=== PATIENT | female | born 1995 | race Caucasian/White ===

== ENCOUNTER 2018-04-24 18:47 | Emergency (ER) | payer OTHER ==
[2018-04-24 19:27] VITALS: BP 132/69
--- NOTE | 2018-04-24 19:50 | UC ---
Skin Complaint HPI - HPI Summary HPI Summary: Patient developed red raised spots on her hands, face and feet after visiting her parents at a hotel the spots do itch - History of Current Complaint Chief Complaint: [employer] Time Seen by Provider: 04/24/18 19:28 Stated Complaint: SKIN COMPLAINT Hx Obtained From: Patient Hx Last Menstrual Period: 04/12/18 Onset/Duration: Sudden Onset, Lasting Days Skin Exposure Onset/Duration: Days Ago Timing: Constant Onset Severity: Mild Current Severity: Mild Pain Intensity: 0 Location: Discrete Character: Redness, Raised, Painful Alleviating Factor(s): Nothing Associated Signs & Symptoms: Positive: Negative Related History: Possible Reaction to: Insect - Allergy/Home Medications Allergies/Adverse Reactions: Allergies Allergy/AdvReac Type Severity Reaction Status Date / Time Penicillins Allergy Hives Verified 04/24/18 19:28 Home Medications: Home Medications Oral Contraceptives DAILY 04/24/18 [History] Review of Systems Constitutional: Negative Skin: Rash Eyes: Negative ENT: Negative Respiratory: Negative Cardiovascular: Negative Gastrointestinal: Negative Genitourinary: Negative Motor: Negative Neurovascular: Negative Musculoskeletal: Negative Neurological: Negative Psychological: Negative Is Patient Immunocompromised?: No All Other Systems Reviewed And Are Negative: Yes PMH/Surg Hx/FS Hx/Imm Hx Previously Healthy: Yes - Surgical History Surgical History: Yes Surgery Procedure, Year, and Place: wisdom teeth - Family History Known Family History: Positive: Hypertension - Social History Alcohol Use: None Substance Use Type: None Smoking Status (MU): Never Smoked Tobacco Physical Exam Triage Information Reviewed: Yes Appearance: Well-Appearing, Well-Nourished, Pain Distress Vital Signs: Initial Vital Signs Temp 98.2 F 04/24/18 19:23 Pulse 82 04/24/18 19:23 Resp 16 04/24/18 19:23 BP 132/69 04/24/18 19:23 Pulse Ox 100 04/24/18 19:23 Vital Signs Reviewed: Yes Eye Exam: Normal ENT Exam: Normal Dental Exam: Normal Neck exam: Normal Respiratory Exam: Normal Respiratory: Positive: Chest non-tender, Lungs clear, Normal breath sounds Cardiovascular Exam: Normal Cardiovascular: Positive: RRR, No Murmur, Pulses Normal Abdominal Exam: Normal Musculoskeletal Exam: Normal Neurological Exam: Normal Psychological Exam: Normal Skin: Positive: rashes - red raised papules Course/Dx - Course Course Of Treatment: hx obtained, exam performed ,meds reviewed, rash and story consistant with bed bugs - Differential Diagnoses - Skin Complaint Differential Diagnoses: Contact Dermatitis, Scabies, Urticaria - Diagnoses Provider Diagnoses: bed bug reaction Discharge - Sign-Out/Discharge Documenting (check all that apply): Patient Departure All imaging exams completed and their final reports reviewed: Yes - Discharge Plan Condition: Stable Disposition: HOME Patient Education Materials: Bed Bugs (ED) Referrals: No Primary Care Phys,NOPCP [Primary Care Provider] - Additional Instructions: 1. use a topical hydrocortisone cream for the itching 2. follow the instructions to minimize any change for bed bug infestation. 3. follow up as needed. - Billing Disposition and Condition Condition: STABLE Disposition: Home
== END 2018-04-24 19:57 | disposition home or self-care (01) ==
LOC: UCCORT 18:47
DX: S60.562A Insect bite (nonvenomous) of left hand, initial encounter (principal); S60.561A Insect bite (nonvenomous) of right hand, initial encounter; S00.86XA Insect bite (nonvenomous) of other part of head, initial encounter; S90.862A Insect bite (nonvenomous), left foot, initial encounter; S90.861A Insect bite (nonvenomous), right foot, initial encounter; W57.XXXA Bitten or stung by nonvenomous insect and other nonvenomous arthropods, initial encounter; Y92.59 Other trade areas as the place of occurrence of the external cause; Z88.0 Allergy status to penicillin
CPT/HCPCS: 99201; G0463